=== PATIENT | male | born 1970 | race Two or more races ===

== ENCOUNTER 2024-03-19 20:11 | Inpatient (IN) | payer OTHER ==
[~2024-03-19] VITALS: Ht 170.2 cm; Wt 92.2 kg
--- NOTE | 2024-03-19 20:31 | ED.PDOC ---
GI ASSESSMENT HPI Comments Initial Vital Signs: BP: 133/76 HR: 95 Temp: 98.5F SpO2: 94% RR: 18 HPI: Poor Historian. 53-year-old male presents to emergency department for evaluation of 2-3 day hi story of left upper quadrant pain radiating to the left groin area and sometimes the lower back. Pain started mild but is now more severe. He tried Tylenol at home without any relief. Patient denies any bowel or bladder symptoms. Never had this kind of pain before. Denies any fall or trauma or injury. Denies any nausea or vomiting or diarrhea. Past Medical History: Arthritis Past Surgical History: Foot Surgery REVIEW OF SYSTEMS: CONSTITUTIONAL: Denies acute: fever, diaphoresis, chills, generalized weakness. HEAD: Denies acute: headache, photophobia Eyes: Denies acute: Double vision, vision loss, eye pain, eye discharge. EARS: Denies acute: tinnitus, hearing loss, ear discharge, ear pain, THROAT: Denies acute: sore throat, swelling, difficulty swallowing , pain with swallowing, change in voice. NECK: Denies acute: neck pain, neck swelling, stiff neck. HEART: Denies acute : chest pain, palpitations, LUNGS: Denies acute: SOB, wheezing, cough, hemoptysis ABDOMEN: Denies acute: Nausea, Vomiting, diarrhea, melena , hematemesis, hematochezia SKIN: Denies acute: rash, redness, lesions, itchiness. EXTREMITIES: Denies acute: calf pain, numbness, tingling, weakness, denies pain in extremity. Neuro: Denies acute: focal neurological deficit, motor or sensory focal neurological deficit, tremors, seizure like activity, confusion, dizziness, change in mental status, loss of bowel or bladder function, cauda equina like symptoms. : Denies acute: dysuria, hematuria, flank pain, increase in urinary frequency. PSYCH: Denies acute: hallucination, suicidal ideation, homicidal ideation. PHYSICAL EXAM: General: Moderate acute distress, awake and alert. Head: normocephalic, atraumatic. Neck: supple, trachea is midline, no swelling. Throat: Normal phonation. Eyes:, no erythema, no purulent discharge, no proptosis, no icterus. Heart: regular rate, regular rhythm, no significant murmur appreciated. Lungs: no apparent respiratory distress, Able to speak in full sentences. No wheezing, no rhonchi, no crackles. No stridors Clear to auscultation bilaterally. Abdomen: Left upper quadrant tender to palpation, non distended, soft, no guarding, no rebound, + bowel sounds. Left lower quadrant tenderness to palpation. Neuro: Awake, Alert, oriented to name, self, situation, follows commands GCS=15. Speech is normal. Skin: no petechia, no purpura, no cyanosis, non-pale, not jaundice. Lower extremities: --no - Pitting edema no deformity, no focal swelling, no calf TTP. Makes eye contact. moves all four extremities. Face: no apparent facial droop. No CVA tenderness to percussion bilaterally. Ambulating in the ED independently. Time Seen by MD: 20:30 Reviewed Notes: Nurses Notes, Medications, Allergies Allergies: Coded Allergies: NO KNOWN ALLERGIES (Unverified , 03/19/24) Information Source: Patient Mode of Arrival: Ambulatory Was a procedure done? Was a procedure done?: No GI differential Dx Differential Diagnosis: Other (DDX include but not limited to diverticulitis, colitis, gastroenteritis, acute abdomen, SBO, enteritis, constipation, volvulus, appendicitis, Gallbladder disease, choledocolithiasis, ascending cholangitis, pancreatitis, intraAbdominal mass/neoplasm, hepatitis, UTI, pylonephritis, kidney stone, aneurysm, dissection, Inflammatory bowel disease, gastroparesis, ischemic bowel.) X-Ray, Labs, Meds, VS Vital Signs Date Time Temp Pulse Resp B/P (MAP) Pulse Ox O2 Delivery O2 Flow Rate FiO2 03/20/24 02:15 87 03/20/24 00:02 98.2 76 18 118/87 (97) 97 98.2 03/20/24 00:02 76 18 97 Room Air* 0 21 03/20/24 00:01 118/87 03/19/24 20:20 98.5 95 18 133/76 (95) 94 Lab Test 03/19/24 21:40 03/19/24 20:34 03/19/24 20:32 Range/Units Troponin I High Sensitivity 3 L 3 L </=54 ng/L White Blood Count 13.6 H 4.4-10.8 10^3/uL Red Blood Count 4.96 4.5-5.90 10^6/uL Hemoglobin 15.3 13.5-17.5 g/dL Hematocrit 44.1 41.0-53.0 % Mean Corpuscular Volume 88.9 80.0-100.0 fL Mean Corpuscular Hemoglobin 31.0 28.0-32.0 pg Mean Corpuscular Hemoglobin Concent 34.8 32.0-36.0 g/dL Red Cell Distribution Width 13.7 11.8-14.3 % Platelet Count 276 140-450 10^3/uL Mean Platelet Volume 8.9 6.9-10.8 fL Neutrophils (%) (Auto) 67.3 37.0-80.0 % Lymphocytes (%) (Auto) 21.7 10.0-50.0 % Monocytes (%) (Auto) 9.2 0.0-12.0 % Eosinophils (%) (Auto) 1.4 0.0-7.0 % Basophils (%) (Auto) 0.4 0.0-2.0 % Neutrophils # (Auto) 9.2 H 1.6-8.6 10 ^3/uL Lymphocytes # (Auto) 3.0 0.4-5.4 10 ^3/uL Monocytes # (Auto) 1.3 0-1.3 10 ^3/uL Eosinophils # (Auto) 0.2 0-0.8 10 ^3/uL Basophils # (Auto) 0.1 0-0.2 10 ^3/uL Nucleated Red Blood Cells 0.0 % Sodium Level 139 136-145 mmol/L Potassium Level 3.9 3.5-5.1 mmol/L Chloride Level 106 98-107 mmol/L Carbon Dioxide Level 23 20-31 mmol/L Anion Gap 10 5-15 Blood Urea Nitrogen 14 9-23 mg/dL Creatinine 0.89 0.700-1.30 mg/dL Glomerular Filtration Rate Calc 102 >90 mL/min BUN/Creatinine Ratio 15.7 10.0-20.0 Serum Glucose 126 H 74-106 mg/dL Lactic Acid Level 1.0 0.4-2.0 mmol/L Calcium Level 9.9 8.7-10.4 mg/dL Total Bilirubin 1.1 H 0.2-1.0 mg/dL Aspartate Amino Transferase (AST) 20 13-40 U/L Alanine Aminotransferase (ALT) 31 7-40 U/L Alkaline Phosphatase 76 46-116 U/L Total Protein 8.0 5.7-8.2 g/dL Albumin 4.7 3.2-4.8 g/dL Lipase 45 12-53 U/L Urine Color Yellow Yellow Urine Clarity Turbid H Clear Urine pH 7.0 5.0-9.0 Urine Specific Thurman 1.024 1.001-1.035 Urine Protein Negative Negative Urine Ketones Negative Negative Urine Blood Negative Negative /uL Urine Nitrite Negative Negative Urine Bilirubin Negative Negative Urine Urobilinogen 2 H Negative mg/dL Urine Leukocyte Esterase Negative Negative /uL Urine RBC 2 0 - 3 /hpf Urine Microscopic WBC 3 0-3 /HPF Urine Squamous Epithelial Cells Few <5 /hpf Urine Amorphous Crystals Few None Seen /hpf Urine Bacteria Few H None Seen /hpf Urine Mucus Few None Seen Urine Glucose Normal Normal mg/dL Urine Opiates Screen Neg NEGATIVE Urine Fentanyl Screen Neg NEGATIVE Urine Barbiturates Screen Neg NEGATIVE Urine Phencyclidine Screen Neg NEGATIVE Urine Amphetamines Screen Neg NEGATIVE Urine Benzodiazepines Screen Neg NEGATIVE Urine Cocaine Screen Neg NEGATIVE Urine Cannabinoids Screen Neg NEGATIVE Current Medications Medications (Trade) Dose Ordered Sig/Joy Route Start Time Stop Time Status Last Admin Ceftriaxone Sodium 50 ml @ 100 mls/hr ONCE ONCE IV 03/19/24 23:00 03/19/24 23:29 DC 03/20/24 00:02 Fentanyl Citrate 100 mcg ONCE ONCE IV 03/19/24 23:00 03/19/24 23:01 DC 03/20/24 00:01 Sodium Chloride 1,000 ml @ 1,000 mls/hr Q1H ONCE IV 03/19/24 23:00 03/19/24 23:59 DC 03/20/24 00:02 PATIENT: HILARY GRAVESCCT: [id number]: [id number] : 1970 LOC: ER ROOM / BED: / AGE / SEX: 53 / M ADM STATUS: REG ER SERVICE 33 ORDERING PHYSICIAN: LOLA REYES DO PROCEDURE(s): ABPL - CT AB PEL WO CON-NO ORAL OR IV REASON: L abd pain ORDER NUMBER(s): [id number], ACCESSION NUMBER(s): [id number] CLINICAL HISTORY: L abd pain TECHNIQUE: CT of the abdomen and pelvis was performed without intravenous contrast. This exam was performed according to our departmental dose optimization program. Up-to-date CT equipment and radiation dose reduction techniques are utilized as appropriate. CTDI: [CTDIvol] DLP: 913.5 WID: COMPARISON: None FINDINGS: Lower Thorax: Small hiatal hernia. Lung bases are clear. Normal-sized heart. Liver and Biliary system: Normal-sized liver. A few tiny hypodensities in the periphery of the right lobe of the liver not optimally evaluated on this noncontrast exam. Cholelithiasis and a normal caliber gallbladder. No biliary ductal dilatation. Spleen: Unremarkable. Adrenal Glands and Kidneys: Unremarkable. Pancreas and Retroperitoneum: Unremarkable. Aorta and Major Vessels: Aortoiliac vessels are normal in caliber with trace calcified atherosclerotic plaque. Bowel, Mesentery and Peritoneal space: Normal appendix. Normal caliber small and large bowel. No fluid collection or free air. Pelvis: Mild wall thickening of the urinary bladder which is minimally distended. No pelvic lymphadenopathy. Prostate is normal-size Abdominal wall and Osseous Structures: Small fat containing umbilical hernia. No destructive osseous lesion. IMPRESSION: 1. No bowel obstruction, fluid collection, or free air. Normal appendix. 2. Cholelithiasis 3. Small hiatal hernia. 4. Mild bladder wall thickening which is likely in part due to underdistention. Correlate with urinalysis if there is clinical concern for cystitis. ATED BY: JAMES KIMBLE MD DICTATED DATE/TIME: 03/19/242121 SIGNED BY: JAMES KIMBLE MD SIGNED DATE/TIME: 03/19/242121 Time of 1ST Reevaluation: 00:47 (Patient was reassessed. He received fluids and fentanyl and still complains of the same pain he had earlier. No significant improvement. I will admit the patient for further evaluation.) Reevaluation 1ST: Improved Time of 2ND Reevaluation: 02:00 (The case was discussed with the [place] admitting team (HPI, physical exam, labs and diagnostic tests that were available at the time of disposition, ED course, treatment plan) on the phone. They authorized the transfer of the patient to their service by [facility] for further evaluation and treatment. Dr. Saleh. Authorization number is--dr. Morris. Authorization #[id number]. ) Patient Education/Counseling: Diagnosis, Treatment Family Education/Counseling: Other Comments Patient presented with the above HPI.--abdominal pain----workup was initiated. patient was found with the above mentioned diagnosis. the following medications were ordered: please refer to order lists of meds and tests obtained by myself Dr. Reyes. Patient ED course and VS have been stabilized. Patient has been reassessed in the ED and remained in a stable condition. Pertinent incidental findings were discussed with the patient and/or family. Patient/family voices understanding and is agreeable with plan. Patient has been observed in the ED adequate length of time to insure improvement/stability. Escalation of care considered: Consideration of escalation to observation or admission Patient was transferred to [facility] per insurance requirement for further evaluation and treatment. All the reports of any imaging studies that were ordered by myself were reviewed by myself. Departure 1 Departure Time of Disposition: 00:05 Impression: Primary Impression: Abdominal pain Disposition: ADMITTED INPATIENT Admit to: Tele Condition: Guarded Additional Instructions: Additional discharge instructions: You MUST follow-up with your primary care/family doctor in 1 to 2 days. If you are unable to see your primary care/family doctor, please return to our emergency room for re-assessment and re-evaluation in 1 to 2 days. Return to the emergency room here in our facility or to the nearest ER [facility] if your symptoms change or worsen. CONSULTATIONS: you MUST Follow-up for consultation as soon as possible with: -gastroenterology and urology in 1-2 days. Please call for appointment. You MUST call the consultants office yourself to make an appointment. You may need to arrange that through your insurance and/or your primary/family doctor. If you are unable to see the senior safety management consultant in 1 to 2 days, you must return to our emergency room (or any other ER of your choice) for re-assessment and re- evaluation. Adequate fluid hydration. Below is a copy of your radiological report for follow up: [address] [address] Ph: [phone] DIAGNOSTIC IMAGING Diagnostic Imaging Report : [id number] Signed PATIENT: NETTA GRAVES ACCT: [id number] UNIT: [id number] : 1970 LOC: ER ROOM / BED: / AGE / SEX: 53 / M ADM STATUS: REG ER SERVICE 33 ORDERING PHYSICIAN: LOLA REYES DO PROCEDURE(s): ABPL - CT AB PEL WO CON-NO ORAL OR IV REASON: L abd pain ORDER NUMBER(s): [id number], ACCESSION NUMBER(s): [id number] CLINICAL HISTORY: L abd pain TECHNIQUE: CT of the abdomen and pelvis was performed without intravenous contrast. This exam was performed according to our departmental dose optimization program. Up-to-date CT equipment and radiation dose reduction techniques are utilized as appropriate. CTDI: [CTDIvol] DLP: 913.5 WID: COMPARISON: None FINDINGS: Lower Thorax: Small hiatal hernia. Lung bases are clear. Normal-sized heart. Liver and Biliary system: Normal-sized liver. A few tiny hypodensities in the periphery of the right lobe of the liver not optimally evaluated on this noncontrast exam. Cholelithiasis and a normal caliber gallbladder. No biliary ductal dilatation. Spleen: Unremarkable. Adrenal Glands and Kidneys: Unremarkable. Pancreas and Retroperitoneum: Unremarkable. Aorta and Major Vessels: Aortoiliac vessels are normal in caliber with trace calcified atherosclerotic plaque. Bowel, Mesentery and Peritoneal space: Normal appendix. Normal caliber small and large bowel. No fluid collection or free air. Pelvis: Mild wall thickening of the urinary bladder which is minimally dist ended. No pelvic lymphadenopathy. Prostate is normal-size Abdominal wall and Osseous Structures: Small fat containing umbilical hernia. No destructive osseous lesion. IMPRESSION: 1. No bowel obstruction, fluid collection, or free air. Normal appendix. 2. Cholelithiasis 3. Small hiatal hernia. 4. Mild bladder wall thickening which is likely in part due to underdistention. Correlate with urinalysis if there is clinical concern for cystitis. ATED BY: JAMES KIMBLE MD DICTATED DATE/TIME: 03/19/242121 SIGNED BY: JAMES KIMBLE MD SIGNED DATE/TIME: 03/19/242121 CC: Discharged With: Self Critical Care Note Critical Care Time?: No I personally scribed for LOLA REYES DO ([email or web address]) on 03/19/24 at 20:31. Electronically submitted by Kiran Garcia ([email or web address]). I personally scribed for LOLA REYES DO ([email or web address]) on 03/19/24 at 21:49. Electronically submitted by Kiran Garcia ([email or web address]). I personally scribed for LOLA REYES DO ([email or web address]) on 03/19/24 at 22:07. Electronically submitted by Kiran Garcia ([email or web address]). LOLA REYES DO Mar 19, 2024 20:31
[2024-03-19 20:51] LABS: Basophils # (auto) 0.1 10 ^3/uL (0-0.2); Basophils % (auto) 0.4 % (0.0-2.0); Eosinophils # (auto) 0.2 10 ^3/uL (0-0.8); Eosinophils % (auto) 1.4 % (0.0-7.0); Hematocrit 44.1 % (41.0-53.0); Hemoglobin 15.3 g/dL (13.5-17.5); Lymphocytes % (auto) 21.7 % (10.0-50.0); Mean Corpuscular Hgb Conc. 34.8 g/dL (32.0-36.0); Mean Corpuscular Volume 88.9 fL (80.0-100.0); Monocytes # (auto) 1.3 10 ^3/uL (0-1.3); Monocytes % (auto) 9.2 % (0.0-12.0); Neutrophils # (auto) 9.2 10 ^3/uL (1.6-8.6); Neutrophils % (auto) 67.3 % (37.0-80.0); Platelet Count (auto) 276 10^3/uL (140-450); Red Blood Cells 4.96 10^6/uL (4.5-5.90); Red Cell Distribution Width 13.7 % (11.8-14.3); White Blood Cell 13.6 10^3/uL (4.4-10.8)
[2024-03-19 21:09] LABS: Alanine Aminotransferase 31 U/L (7-40); Albumin 4.7 g/dL (3.2-4.8); Alkaline Phosphatase 76 U/L (46-116); Anion Gap 10 (5-15); Aspartate Aminotransferase 20 U/L (13-40); BUN/Creatinine Ratio 15.7 (10.0-20.0); Bilirubin, Total 1.1 mg/dL (0.2-1.0); Blood Urea Nitrogen 14 mg/dL (9-23); Calcium 9.9 mg/dL (8.7-10.4); Carbon Dioxide 23 mmol/L (20-31); Chloride 106 mmol/L (98-107); Lipase 45 U/L (12-53); Potassium 3.9 mmol/L (3.5-5.1); Sodium 139 mmol/L (136-145)
[2024-03-19 21:13] LABS: Glucose 126 mg/dL (74-106)
--- NOTE | 2024-03-19 21:24 | DVH ---
CLINICAL HISTORY: L abd pain TECHNIQUE: CT of the abdomen and pelvis was performed without intravenous contrast. This exam was per formed according to our departmental dose optimization program. Up-to-date CT equipment and radiation dose reduction techniques are utilized as appropriate. CTDI: [CTDIvol] DLP: 913.5 WID: COMPARISON: None FINDINGS: Lower Thorax: Small hiatal hernia. Lung bases are clear. Normal-sized heart. Liver and Biliary system: Normal-sized liver. A few tiny hypodensities in the periphery of the right lobe of the liver not optimally evaluated on this noncontrast exam. Cholelithiasis and a normal drew anika gallbladder. No biliary ductal dilatation. Spleen: Unremarkable. Adrenal Glands and Kidneys: Unremarkable. Pancreas and Retroperitoneum: Unremarkable. Aorta and Major Vessels: Aortoiliac vessels are normal in caliber with trace calcified atheroscleroti c plaque. Bowel, Mesentery and Peritoneal space: Normal appendix. Normal caliber small and large bowel. No flu id collection or free air. Pelvis: Mild wall thickening of the urinary bladder which is minimally distended. No pelvic lymphaden opathy. Prostate is normal-size Abdominal wall and Osseous Structures: Small fat containing umbilical hernia. No destructive osseous lesion. IMPRESSION: 1. No bowel obstruction, fluid collection, or free air. Normal appendix. 2. Cholelithiasis 3. Small hiatal hernia. 4. Mild bladder wall thickening which is likely in part due to underdistention. Correlate with urina lysis if there is clinical concern for cystitis.
[2024-03-19 21:43] LABS: Urine Amorphous Crystal FEW /hpf (None Seen); Urine Bacteria FEW /hpf (None Seen); Urine Blood Negative /uL (Negative); Urine Clarity Turbid (Clear); Urine Color Yellow (Yellow); Urine Mucus FEW (None Seen); Urine Protein, UAD Negative (Negative); Urine Specific Gravity 1.024 (1.001-1.035); Urine Squamous Epithelial Cell FEW /hpf (<5); Urine Urobilinogen 2 mg/dL (Negative); Urine WBC 3 /HPF (0-3)
[2024-03-19 21:51] LABS: Amphetamine Screen, Urine Neg (NEGATIVE); Barbiturate Scree,Urine Neg (NEGATIVE); Benzodiazephine Screen, Urine Neg (NEGATIVE); Cannabinoid Screen, Urine Neg (NEGATIVE); Cocaine Screen, Urine Neg (NEGATIVE); Opiate Scree,Urine Neg (NEGATIVE); Phencyclidine Screen, Urine Neg (NEGATIVE)
[2024-03-20] VITALS (7 sets, daily range): BP systolic 104–120; BP diastolic 61–70; PULSE 75–127; RESP 18–20; TEMP 97.9–101.3; O2SAT 90–97
[2024-03-20] MEDS: fentaNYL CITRATE 100 MCG/2 ML VL IV ONE ×2 (00:01→03:24)
[2024-03-20] MEDS: SODIUM CHLORIDE 0.9% 1,000 ML IV ONE (00:02)
[2024-03-20] MEDS: cefTRIAXone 1GM/50ML D5W 50 ML IV ONE (00:02)
--- NOTE | 2024-03-20 07:17 | ECG ---
[facility] Test Date: 2024-03-20 Test Time: 02:15:21 Pat Name: NETTA GARVES Department: ER Room: [address] [place] [address] Gender: M Client Experience Consultant: NIKOLAS : 1970 Requested By: LOLA REYES Order Number: [id number] Reading MD: Oj Melvin Measurements Intervals [place] Rate: 87 P: 65 IN: 156 QRS: 88 QRSD: 100 T: 28 QT: 359 QTc: 432 Interpretive Statements Sinus rhythm Electronically Signed On 03-20-2024 9:50:33 PST by Oj Melvin Please click the below link to view image of tracing.
--- NOTE | 2024-03-20 07:18 | DVHHP2 ---
History of Present Illness Reason for Visit: Abdominal pain History of Present Illness Jason Miles is a 53-year-old male with past medical history of hyperlipidemia, arthritis, and left foot surgery who presents to the ED for abdominal pain that radiates to the left groin and left lower back x3 days. Patient reports that it is sharp 10/10 and constant. He reports that he has not had a bowel movement in 4 days. Patient reports that there are no triggering factors. Patient denies recent ingestion of spoiled food, recent trauma or injury, recent illnesses, recent sick contacts, chest pain, shortness of breath, nausea, vomiting, diarrhea, fever, and chills. Cardiovascular: hyperipidemia Past Medical History Arthritis Past Surgical History: Other (Left foot sx) Family History: Cancer, Hypertension Family History Mom- HTN Brother liver and [place] Smoke: No ALCOHOL: none Drugs: None Lives: with Family Domestic Violence: Neg Review of Systems Constitutional: No: Fever, Chills, Sweats, Weakness, Malaise, Other Eyes: No: Pain, Vision change, Conjunctivae inflammation, Eyelid inflammation, Other, Redness ENT: No: Ear pain, Ear discharge, Nose pain, Nose discharge, Nose congestion, Mouth pain, Mouth swelling, Throat pain, Throat swelling, Other Respiratory: No: Cough, Dry, Shortness of breath, SOB with excertion, Wheezing, Hemoptysis, Pleuritic Pain, Sputum, Wheezing, Other Cardiovascular: No: Chest Pain, Palpitations, Orthopnea, Paroxysmal Noc. Dyspnea, Edema, Lt Headedness, Other Gastrointestinal: Abdominal Pain; No: Nausea, Vomiting, Diarrhea, Melena, Hematochezia, Other Genitourinary: No Dysuria, No Frequency, No Incontinence, No Hematuria, No Retention, No Other Musculoskeletal: back pain; No: other, neck pain, shoulder pain, arm pain, hand pain, leg pain, foot pain Skin: No: Rash, Lesions, Jaundice, Bruising, Other Neurological: No: Weakness, Numbness, Incoordination, Change in speech, Confusi on, Seizures, Other Allergies: Coded Allergies: NO KNOWN ALLERGIES (Unverified , 03/19/24) Exam Vital Signs Vital Signs Date Time Temp Pulse Resp B/P (MAP) Pulse Ox O2 Delivery O2 Flow Rate FiO2 03/20/24 03:24 125/73 03/20/24 02:15 87 03/20/24 00:02 98.2 18 97 98.2 03/20/24 00:02 Room Air* 0 21 General Appearance: Alert, Oriented X3, Cooperative, No acute distress HEENT: Atraumatic, PERRLA, EOMI, Mucous membr. moist/pink Respiratory: Clear to auscultation, Normal air movement Cardiovascular: Regular rate, Normal S1, Normal S2, No murmurs Abdominal: Soft, No hepatospenomegaly, No masses Extremities: No clubbing, No cyanosis, No edema, Normal pulses, No tenderness/swelling Skin: No rashes, No breakdown, No significant lesion Neuro: Normal gait, Normal speech, Strength at 5/5 X4 ext, Normal tone, Sensation intact Psych/Mental Status: Mental status NL, Mood NL Labs/Xrays Labs Test 03/19/24 21:40 03/19/24 20:34 03/19/24 20:32 Range/Units Troponin I High Sensitivity 3 L </=54 ng/L White Blood Count 13.6 H 4.4-10.8 10^3/uL Red Blood Count 4.96 4.5-5.90 10^6/uL Hemoglobin 15.3 13.5-17.5 g/dL Hematocrit 44.1 41.0-53.0 % Mean Corpuscular Volume 88.9 80.0-100.0 fL Mean Corpuscular Hemoglobin 31.0 28.0-32.0 pg Mean Corpuscular Hemoglobin Concent 34.8 32.0-36.0 g/dL Red Cell Distribution Width 13.7 11.8-14.3 % Platelet Count 276 140-450 10^3/uL Mean Platelet Volume 8.9 6.9-10.8 fL Neutrophils (%) (Auto) 67.3 37.0-80.0 % Lymphocytes (%) (Auto) 21.7 10.0-50.0 % Monocytes (%) (Auto) 9.2 0.0-12.0 % Eosinophils (%) (Auto) 1.4 0.0-7.0 % Basophils (%) (Auto) 0.4 0.0-2.0 % Neutrophils # (Auto) 9.2 H 1.6-8.6 10 ^3/uL Lymphocytes # (Auto) 3.0 0.4-5.4 10 ^3/uL Monocytes # (Auto) 1.3 0-1.3 10 ^3/uL Eosinophils # (Auto) 0.2 0-0.8 10 ^3/uL Basophils # (Auto) 0.1 0-0.2 10 ^3/uL Nucleated Red Blood Cells 0.0 % Sodium Level 139 136-145 mmol/L Potassium Level 3.9 3.5-5.1 mmol/L Chloride Level 106 98-107 mmol/L Carbon Dioxide Level 23 20-31 mmol/L Anion Gap 10 5-15 Blood Urea Nitrogen 14 9-23 mg/dL Creatinine 0.89 0.700-1.30 mg/dL Glomerular Filtration Rate Calc 102 >90 mL/min BUN/Creatinine Ratio 15.7 10.0-20.0 Serum Glucose 126 H 74-106 mg/dL Lactic Acid Level 1.0 0.4-2.0 mmol/L Calcium Level 9.9 8.7-10.4 mg/dL Total Bilirubin 1.1 H 0.2-1.0 mg/dL Aspartate Amino Transferase (AST) 20 13-40 U/L Alanine Aminotransferase (ALT) 31 7-40 U/L Alkaline Phosphatase 76 46-116 U/L Total Protein 8.0 5.7-8.2 g/dL Albumin 4.7 3.2-4.8 g/dL Lipase 45 12-53 U/L Urine Color Yellow Yellow Urine Clarity Turbid H Clear Urine pH 7.0 5.0-9.0 Urine Specific [place] 1.024 1.001-1.035 Urine Protein Negative Negative Urine Ketones Negative Negative Urine Blood Negative Negative /uL Urine Nitrite Negative Negative Urine Bilirubin Negative Negative Urine Urobilinogen 2 H Negative mg/dL Urine Leukocyte Esterase Negative Negative /uL Urine RBC 2 0 - 3 /hpf Urine Microscopic WBC 3 0-3 /HPF Urine Squamous Epithelial Cells Few <5 /hpf Urine Amorphous Crystals Few None Seen /hpf Urine Bacteria Few H None Seen /hpf Urine Mucus Few None Seen Urine Glucose Normal Normal mg/dL Urine Opiates Screen Neg NEGATIVE Urine Fentanyl Screen Neg NEGATIVE Urine Barbiturates Screen Neg NEGATIVE Urine Phencyclidine Screen Neg NEGATIVE Urine Amphetamines Screen Neg NEGATIVE Urine Benzodiazepines Screen Neg NEGATIVE Urine Cocaine Screen Neg NEGATIVE Urine Cannabinoids Screen Neg NEGATIVE CLINICAL HISTORY: L abd pain TECHNIQUE: CT of the abdomen and pelvis was performed without intravenous contrast. This exam was performed according to our departmental dose optimization program. Up-to-date CT equipment and radiation dose reduction techniques are utilized as appropriate. CTDI: [CTDIvol] DLP: 913.5 WID: COMPARISON: None FINDINGS: Lower Thorax: Small hiatal hernia. Lung bases are clear. Normal-sized heart. Liver and Biliary system: Normal-sized liver. A few tiny hypodensities in the periphery of the right lobe of the liver not optimally evaluated on this noncontrast exam. Cholelithiasis and a normal caliber gallbladder. No biliary ductal dilatation. Spleen: Unremarkable. Adrenal Glands and Kidneys: Unremarkable. Pancreas and Retroperitoneum: Unremarkable. Aorta and Major Vessels: Aortoiliac vessels are normal in caliber with trace calcified atherosclerotic plaque. Bowel, Mesentery and Peritoneal space: Normal appendix. Normal caliber small and large bowel. No fluid collection or free air. Pelvis: Mild wall thickening of the urinary bladder which is minimally distended. No pelvic lymphadenopathy. Prostate is normal-size Abdominal wall and Osseous Structures: Small fat containing umbilical hernia. No destructive osseous lesion. IMPRESSION: 1. No bowel obstruction, fluid collection, or free air. Normal appendix. 2. Cholelithiasis 3. Small hiatal hernia. 4. Mild bladder wall thickening which is likely in part due to underdistention. Correlate with urinalysis if there is clinical concern for cystitis. Assessment/Plan Assessment/Plan IntractableAssessment/Plan: Intractable abdominal pain Leukocytosis Hyperbilirubinemia Labs Antiemetics Pain management NS 1 L given ED IV antibiotics-ceftriaxone plus Zosyn Troponin negative x2 EKG UA Drug noted Lipase Lactic CT abdomen and pelvis A.m. labs Bowel regimen History of hyperlipidemia Follow up outpatient with PCP Small hiatal hernia Follow up outpatient with PCP Cholelithiasis Follow up outpatient with PCP FEN/PPX Diet Hep-Lock DVT prophylaxis not indicated patient ambulating PUD prophylaxis Protonix Admit to med surg Patient states he doesn't take any home medications Discussed plan of care with patient and nurse Plan discussed with: Patient My Orders Orders - JUANCARLOS RUSSELL APPEALS ASSISTANT Procedure Category Date Status Time Docusate Sodium PHA 03/20/24 Verified Capsule (Colace 10:00 Admit ADMIT 03/20/24 Verified 07:11 Allergies CATHLEEN 03/20/24 Verified 07:11 Code Status CODE 03/20/24 Verified 07:11 Hydrocodone-Acet PHA 03/20/24 Verified 5/325mg Tab ([place] 07:15 Date of Service: Mar 20, 2024 Billing Provider: JUANCARLOS RUSSELL Common Visit Codes: [id number] INP/OBS CARE (HIGH) JUANCARLOS RUSSELL Mar 20, 2024 07:18
[2024-03-20] MEDS: cefTRIAXone 1GM/50ML D5W 50 ML IV SCH (09:23)
[2024-03-20] MEDS: ONDANSETRON HCL 4 MG/2 ML VIAL IV PRN (09:23)
[2024-03-20] MEDS: MORPHINE SULFATE INJ 2 MG/ml SYRG IV PRN (09:24)
[2024-03-20] MEDS: DOCUSATE SOD 100 MG CAP PO SCH (09:35)
[2024-03-20] MEDS: HYDROcodone-ACET 5/325MG TAB PO PRN (09:59)
[2024-03-20] MEDS: PIPERACILLIN-TAZOB 3.375GM 100 ML IV ONE (11:49)
[2024-03-20] MEDS: POLYETHYLENE GLYCOL 17 GM PWDR PO ONE (11:49)
[2024-03-20] MEDS: METOCLOPRAMIDE HCL 5MG/ml INJ 2ml VIAL IV ONE (11:49)
[2024-03-20] MEDS: METOCLOPRAMIDE HCL 5MG/ml INJ 2ml VIAL IV SCH (13:44)
[2024-03-20] MEDS ORDERED: PIPERACILLIN-TAZOB 3.375GM 100 ML IV SCH ×2 (14:00→20:00)
--- NOTE | 2024-03-20 14:02 | DVHPN2 ---
Progress Note Date Seen: Mar 20, 2024 Medical Necessity Reason Pt with a Central, PICC or Fol: No Subjective Patient reports: No new complaints Review of Systems: HEENT:Normal, CVS:Normal, RESPIRATORY:Normal, GI:Normal, :Normal, MSK:Normal, NEURO:Normal Objective vital signs Vital Sign Date Time Temp Pulse Resp B/P (MAP) Pulse Ox O2 Delivery O2 Flow Rate FiO2 03/20/24 12:50 97.9 91 20 109/70 (83) 94 97.9 03/20/24 09:38 Room Air* 0 21 medications Current Medications Medications Dose Ordered Sig/Joy Route Start Time Stop Time Status Last Admin Dose Admin Docusate Sodium 100 mg BID PO 03/20/24 10:00 03/20/24 09:35 100 MG Acetaminophen/ Hydrocodone Bitart 1 tab Q4HP PRN PO 03/20/24 07:15 03/20/24 09:59 1 TAB Ondansetron HCl 4 mg Q4HP PRN IV 03/20/24 07:15 03/20/24 09:23 4 MG Acetaminophen 650 mg Q6HP PRN PO 03/20/24 07:15 Morphine Sulfate 2 mg Q4HPRN PRN IV 03/20/24 07:15 03/20/24 09:24 2 MG Ceftriaxone Sodium 50 ml @ 100 mls/hr DAILY@09 IV 03/20/24 09:00 03/20/24 09:23 100 MLS/HR Polyethylene Glycol 17 gm DAILY PO 03/21/24 10:00 Metoclopramide HCl 5 mg Q8HR IV 03/20/24 14:00 03/20/24 13:44 5 MG Piperacillin Sod/ Tazobactam Sod 100 ml @ 25 mls/hr Q8H IV 03/20/24 20:00 Examination: GENERAL:Normal, HEENT:Normal, NECK:Normal, LUNGS:Normal, CVS:Normal, ABDOMEN:Normal, ABDOMEN:Abnormal (left flank tenderness), MSK:Normal, SKIN:Normal, NEURO:Normal, :Normal laboratory and microbiology Laboratory Tests 03/19/24 20:34 Test 03/19/24 20:34 Range/Units Serum Glucose 126 H 74-106 mg/dL Problem List/Assessment/Plan Problem List/Assessment/Plan #1 left abd/flank tenderness: ct spine, toradol #2 ?uti: iv rocephin #3 gallstones #4 obesity #5 RA advance care planning- full code- time spent 19 mins Plan discussed with: Patient Date of Service: Mar 20, 2024 Billing Provider: DAGOBERTO ROBBINS MD Common Visit Codes: [id number] INP/OBS CARE(HIGH) Secondary Visit Codes: [id number] CARE PLAN 30 MINUTES DAGOBERTO ROBBINS MD Mar 20, 2024 14:02
--- NOTE | 2024-03-20 14:34 | DVH ---
CT LS SPINE WO CONTRAST INDICATION: back/ abd pain EXAM DATE: 03/20/2024 02:06 PM COMPARISON: None RADIATION DOSE: CTDIvol: 37.52 mGy, DLP: 1179.67 mGy*cm Technique: Utilizing the CT scanner, contiguous axial scans were obtained through the lumbar spine. C oronal and sagittal reformatted images were then generated. All CT scans at this medical facility are performed using dose modulation techniques as appropriate t o a performed exam including the following: Automated exposure control was utilized; adjustment of th e MA and/or KV according to patient size; and use of iterative reconstruction technique. FINDINGS: 4 [id number] lumbar-type vertebrae with sacralization of L5. Mild straightening of the lumbar lo rdosis. The vertebral body heights are maintained. No evidence of acute traumatic fractures or spond ylolisthesis. T12-L1: No significant spinal canal or neural foramina stenosis. L1-L2: Minimal posterior disc bulge without significant spinal canal or neural foramina stenosis. L2-L3: Minimal posterior disc bulge without significant spinal canal stenosis. Mild bilateral neural foramina stenosis. L3-L4: Posterior disc bulge with ligamentum flavum hypertrophy and dorsal epidural lipomatosis causin g moderate spinal canal stenosis with mild bilateral neural foramina stenosis. L4-L5: Mild posterior disc bulge with ligamentum flavum hypertrophy and dorsal epidural lipomatosis w ithout significant spinal canal stenosis. Mild to moderate left with moderate right-sided neural fora romy stenosis. L5-S1: No significant spinal canal or neural foramina stenosis. Paraspinal muscles are unremarkable. Mild nonspecific subcutaneous fat edema of the midline lower gracie k. IMPRESSION: No evidence of acute traumatic fractures or spondylolisthesis. Spinal canal stenosis at L3-L4. Moderate right-sided neural foramina stenosis at L4-L5.
[2024-03-20] MEDS: ACETAMINOPHEN 325 MG TAB PO PRN (18:54)
[2024-03-21] VITALS (7 sets, daily range): BP systolic 85–145; BP diastolic 52–86; PULSE 59–96; RESP 17–20; TEMP 97.9–99.4; O2SAT 92–97
[2024-03-21] MEDS: KETOROLAC TROMETH 30 MG/ML 1ML VIAL IV ONE (07:01)
[2024-03-21] MEDS: POLYETHYLENE GLYCOL 17 GM PWDR PO SCH (09:21)
[2024-03-21 10:59] LABS: Basophils # (auto) 0 10 ^3/uL (0-0.2); Basophils % (auto) 0.3 % (0.0-2.0); Eosinophils # (auto) 0.4 10 ^3/uL (0-0.8); Eosinophils % (auto) 3.1 % (0.0-7.0); Hematocrit 43.2 % (41.0-53.0); Hemoglobin 14.5 g/dL (13.5-17.5); Lymphocytes # (auto) 1.8 10 ^3/uL (0.4-5.4); Lymphocytes % (auto) 13.8 % (10.0-50.0); Mean Corpuscular Hgb Conc. 33.4 g/dL (32.0-36.0); Mean Corpuscular Volume 92.7 fL (80.0-100.0); Monocytes # (auto) 1.1 10 ^3/uL (0-1.3); Monocytes % (auto) 8.3 % (0.0-12.0); Neutrophils # (auto) 9.6 10 ^3/uL (1.6-8.6); Neutrophils % (auto) 74.5 % (37.0-80.0); Nucleated Red Blood Cells % 0.1 %; Platelet Count (auto) 203 10^3/uL (140-450); Red Blood Cells 4.66 10^6/uL (4.5-5.90); White Blood Cell 12.9 10^3/uL (4.4-10.8)
[2024-03-21 11:46] LABS: Albumin 4.1 g/dL (3.2-4.8); Alkaline Phosphatase 90 U/L (46-116); Anion Gap 7 (5-15); BUN/Creatinine Ratio 12.6 (10.0-20.0); Blood Urea Nitrogen 13 mg/dL (9-23); Calcium 8.8 mg/dL (8.7-10.4); Carbon Dioxide 25 mmol/L (20-31); Chloride 104 mmol/L (98-107); Glucose 103 mg/dL (74-106); Potassium 4.2 mmol/L (3.5-5.1); Sodium 136 mmol/L (136-145)
[2024-03-21 11:47] LABS: Total Protein 6.9 g/dL (5.7-8.2)
[2024-03-21 12:08] LABS: Alanine Aminotransferase 65 U/L (7-40); Aspartate Aminotransferase 111 U/L (13-40)
[2024-03-21] MEDS ORDERED: MORPHINE SULFATE INJ 2 MG/ml SYRG IV PRN (15:15)
[2024-03-21] MEDS: LIDOCAINE 5% TOPICAL PATCH TOP SCH (18:12)
--- NOTE | 2024-03-21 20:41 | DVHPN2 ---
Subjective having some back pain Changes from previous H/P or p: No Changes Eyes: No Pain, No Vision change, No Conjunctivae inflammation, No Eyelid inflammation, No Other, No Redness ENT: No Ear pain, No Ear discharge, No Nose pain, No Nose discharge, No Nose congestion, No Mouth pain, No Mouth swelling, No Throat pain, No Throat swelling, No Other Cardiovascular: No Chest Pain, No Palpitations, No Orthopnea, No Paroxysmal Noc. Dyspnea, No Edema, No Lt Headedness, No Other Respiratory: No Cough, No Dry, No Shortness of breath, No SOB with excertion, No Wheezing, No Hemoptysis, No Pleuritic Pain, No Sputum, No Other Gastrointestinal: No Nausea, No Vomiting; Abdominal Pain; No Diarrhea, No Melena, No Hematochezia, No Other Genitourinary: No Dysuria, No Frequency, No Incontinence, No Hematuria, No Retention, No Other Musculoskeletal: No other, No neck pain, No shoulder pain, No arm pain; back pain; No hand pain, No leg pain, No foot pain Skin: No Rash, No Lesions, No Jaundice, No Bruising, No Other Objective Vitals Vital Signs Date Time Temp Pulse Resp B/P (MAP) Pulse Ox O2 Delivery O2 Flow Rate FiO2 03/21/24 17:00 99.3 78 20 110/66 (81) 96 99.3 03/21/24 07:30 Room Air* 0 21 Intake/Output Intake and Output 03/21/24 05:00 Intake Total 720 ml Balance 720 ml Intake Oral 720 ml # Voids 6 General Appearance: Alert, Oriented X3 Lungs: Clear to auscultation Abdomen: Normal bowel sounds, Soft, No tenderness Medications Current Medications Medications Dose Ordered Sig/Joy Route Start Time Stop Time Status Last Admin Dose Admin Docusate Sodium 100 mg BID PO 03/20/24 10:00 03/21/24 09:21 100 MG Acetaminophen/ Hydrocodone Bitart 1 tab Q4HP PRN PO 03/20/24 07:15 03/21/24 20:18 1 TAB Ondansetron HCl 4 mg Q4HP PRN IV 03/20/24 07:15 03/20/24 09:23 4 MG Acetaminophen 650 mg Q6HP PRN PO 03/20/24 07:15 03/20/24 18:54 650 MG Ceftriaxone Sodium 50 ml @ 100 mls/hr DAILY@09 IV 03/20/24 09:00 03/21/24 09:21 100 MLS/HR Polyethylene Glycol 17 gm DAILY PO 03/21/24 10:00 03/21/24 09:21 17 GM Morphine Sulfate 1 mg Q2HPRN PRN IV 03/21/24 15:15 Lidocaine 1 patch DAILY@1700 TOP 03/21/24 17:00 03/21/24 18:12 1 PATCH Laboratory Results Laboratory Tests 03/21/24 08:22 03/21/24 11:00 Chemistry Test 03/21/24 11:00 Albumin 4.1 g/dL (3.2-4.8) Calcium Level 8.8 mg/dL (8.7-10.4) Total Protein 6.9 g/dL (5.7-8.2) LFT Test 03/21/24 11:00 Alanine Aminotransferase (ALT) 65 U/L (7-40) H Alkaline Phosphatase 90 U/L (46-116) Aspartate Amino Transferase (AST) 111 U/L (13-40) H Total Bilirubin 1.0 mg/dL (0.2-1.0) Urinalysis Test 03/19/24 20:32 Urine Color Yellow (Yellow) Urine Clarity Turbid (Clear) H Urine pH 7.0 (5.0-9.0) Urine Specific [place] 1.024 (1.001-1.035) Urine Protein Negative (Negative) Urine Ketones Negative (Negative) Urine Blood Negative /uL (Negative) Urine Nitrite Negative (Negative) Urine Bilirubin Negative (Negative) Urine Urobilinogen 2 mg/dL (Negative) H Urine Leukocyte Esterase Negative /uL (Negative) Urine RBC 2 /hpf (0 - 3) Urine Microscopic WBC 3 /HPF (0-3) Urine Squamous Epithelial Cells Few /hpf (<5) Urine Amorphous Crystals Few /hpf (None Seen) Urine Bacteria Few /hpf (None Seen) H Urine Mucus Few (None Seen) Urine Glucose Normal mg/dL (Normal) Assessment/Plan Assessment/Plan Intractable abdominal pain Leukocytosis Hyperbilirubinemia CT scan with cholelithiasis Monitor LFts IV abx History of hyperlipidemia Follow up outpatient with PCP Small hiatal hernia Follow up outpatient with PCP Cholelithiasis Follow up outpatient with PCP FEN/PPX Diet Hep-Lock DVT prophylaxis not indicated patient ambulating PUD prophylaxis Protonix Plan discussed with: Patient My Orders Orders - ARIEL FRAUSTO MD Procedure Category Date Status Time * Bilingual Office Assistant CONS 03/21/24 Transmitted Consult Morphine Sulfate PHA 03/21/24 In Process Injection 15:15 Lidocaine 5% Topical PHA 03/21/24 In Process Patch (Lidoderm 5% 17:00 Discharge DISCHARGE 03/21/24 Transmitted 15:43 Date of Service: Mar 21, 2024 Billing Provider: ARIEL FRAUSTO MD Common Visit Codes: [id number] INP/OBS CARE(HIGH) ARIEL FRAUSTO MD Mar 21, 2024 20:41
== END 2024-03-22 03:15 | disposition short-term general hospital (02) | DRG 446 ==
LOC: ER 20:11 → OVERFLOW 03-20 07:11 → WEST WING 03-20 19:05
PROVIDERS: ATTEND Hospitalist
DX: K80.20 Calculus of gallbladder without cholecystitis without obstruction (principal); D72.829 Elevated white blood cell count, unspecified; K44.9 Diaphragmatic hernia without obstruction or gangrene; E78.5 Hyperlipidemia, unspecified; M06.9 Rheumatoid arthritis, unspecified; E66.9 Obesity, unspecified; Z82.49 Family history of ischemic heart disease and other diseases of the circulatory system; Z68.31 Body mass index [BMI] 31.0-31.9, adult
CPT/HCPCS: 36415; 72131; 74176; 80053; 80307; 81001; 83605; 83690; 84484; 85025; 93005; 96365; 96375; 96376; G0378; J1885; J2405; J2543